=== PATIENT | female | born 1995 | race Caucasian/White ===

== ENCOUNTER → 2019-04-06 07:04 | Outpatient (CLI) | payer OTHER, MEDICAID, SELFPAY ==
[2019-04-06 08:31] LABS: Hematocrit 35.8 % (36-46); Hemoglobin 12.3 g/dL (12.0-16.0); Mean Corpuscular HGB Conc 34.3 % (30-36); Mean Corpuscular Hemoglobin 30.1 PG (26-34); Mean Corpuscular Volume 87.8 fL (80-100); Platelet Count 221 X10^3/uL (150-400); Red Blood Cell Count 4.08 X10^6/uL (4.0-5.2); White Blood Cell Count 9.8 X10^3/uL (4.5-11.0)
[2019-04-06 08:41] LABS: Glucose Fasting 78 mg/dL (70-100)
[2019-04-06 08:51] LABS: Alanine Aminotransferase 25 IU/L (9-52); Albumin 3.6 g/dL (3.5-5.0); Albumin Globulin Ratio 1.1 (1.0-2.8); Alkaline Phosphatase 136 U/L (38-126); Aspartate Aminotransferase 22 IU/L (14-36); Bilirubin Total 0.4 mg/dL (0.2-1.3); Bilirubin Unconjugated 0.2 mg/dL (0.0-1.1); Globulin 3.4 g/dL (1.7-4.1); HEMOLYSIS < 15 (0-50)
[2019-04-06 09:27] LABS: Glucose Tol Interpretation INTERPRETATION
[2019-04-06 09:55] LABS: Glucose 1 Hour 175 mg/dL (70-170)
[2019-04-06 11:08] LABS: Glucose 2 Hour 138 mg/dL (70-140)
== END ==
PROVIDERS: Visit Provider Nurse Practitioner Obstetrics & Gynecology
DX: Z34.93 Encounter for supervision of normal pregnancy, unspecified, third trimester (principal); Z3A.27 27 weeks gestation of pregnancy
CPT/HCPCS: 36415; 80076; 82951; 82952; 85027; 86850

== ENCOUNTER 2019-05-30 10:51 | Outpatient (CLI) | payer OTHER, MEDICAID, SELFPAY ==
--- NOTE | 2019-05-30 11:01 | DI.US.S_ITS ---
PROCEDURE: US OB BIOPHYSICAL PROFILE INDICATIONS: @ 34.6wks W/ INTRAHEPATIC CHOLESTASIS OF OUTSIDE/PRIOR DATING DATA: Last menstrual period (LMP): 09/28/18. LMP-based estimated date of delivery (GEORGE): 07/05/19. TECHNIQUE: Real-time scanning was performed of the fetus, with image documentation and biometric measurements. Biophysical profile was also obtained. COMPARISON: None. FINDINGS: General: A single living intrauterine gestation is present. Presentation: Cephalic Placenta: Placental position is anterior Amniotic fluid index: 11.6 cm, normal range is 5-24 cm. heart rate: 136 beats per minute. Maternal cervical canal: Not obtained or adequately seen Biophysical profile: Tone: 2/2 points. Movement: 2/2 points. Respiration: 2/2 points. Largest pocket of fluid: 2/2 points. (3.5 cm) IMPRESSION: 1. Single intrauterine . 2. Normal biophysical profile (05/14). Dictated by: Coleman Nye M.D. on 05/30/2019 at 12:46 Approved by: oCleman Nye M.D. on 05/30/2019 at 12:48
--- NOTE | 2019-05-30 11:07 | P.TNLD_ITS ---
Visit Information Visit Information Date of evaluation: 05/30/19 Primary OB Provider: Tameka Carter On-call OB Provider: Jacobo Wright Reason for Evaluation: Yes non-stress test Comments/Additional reasons for admission: 23YO @ 34.6 wks w/ new diagnosis of ICP, here for NST, BPP and coordination of care. Vital Signs Vital Signs: BP 108/55, HR-67, RR-16, T-97.8 [facility] Medical History (Updated 05/30/19 @ 12:28 by Tameka Carter CNM) Obesity (BMI 30.0-34.9) (Acute) Anxiety and depression (Acute) Type O blood, Rh negative (Acute) Liver and biliary tract disorders in , third trimester (Acute) History of suicide attempt (Acute) with 34 completed weeks gestation (Acute) Supervision of high risk due to social problems (Acute) Supervision of with other poor reproductive or obstetric history, unspecified trimester (Acute) Surgical History (Updated 05/30/19 @ 11:23 by Tameka Carter CNM) History of appendectomy (Acute) Social History (Updated 05/30/19 @ 11:25 by Tameka Carter CNM) marital status: unmarried,living together details: AWAIS moved from [place] to with her number of children: 1 household members: family and children lives independently: Yes housing: house occupational status: employed Smoking Status: Former smoker substance use type: other Type(s) of exercise: walking Social History (Updated 05/30/19 @ 11:25 by Tameka Carter CNM) marital status: unmarried,living together details: AWAIS moved from [place] to with her number of children: 1 household members: family and children lives independently: Yes housing: house occupational status: employed Smoking Status: Former smoker substance use type: other Type(s) of exercise: walking Review of Systems Review of Systems Intense full boy pruritis started 05/25/19. No RUQ pain. All systems reviewed & are unremarkable except as noted in HPI and below Exam Vital Signs (past 8 hours): BP 108/55, HR-67, RR-16, T-97.8 Const General: cooperative Nutritional Appearance: obese Orientation: alert and oriented x3 Limitations: altered mental status Resp Effort & Inspection: normal respiratory effort and able to speak in complete sentences Auscultation: clear to auscultation bilaterally Cardio Rate: regular rate Rhythm: regular rhythm Heart Sounds: S1 normal and S2 normal GI Palpation: soft and no hepatosplenomegaly Other: No RUQ tederness OB/External & Speculum: external exam normal Presentation: vertex Other: GBS collected Psych Appearance: grossly normal Mental Status: mental status grossly normal Speech and Movement: speech and movement normal Mood: congruent mood Affect: normal affect Attitude: cooperative Thought Process: normal Judgment: judgment good Objective Labs Labs: Total bile acids drawn 05/25/19 and resulted 05/29/19 @ 1700 are 17.2umol/L 05/25/19 LFTs: AST-36, ALT-53, Alkaline phosphatase-226 GBS collected in triage-pending Evaluation Evaluation Baseline heart rate: 140 Variability: Moderate (11-25) monitor accelerations: Present monitor decelerations: Absent Contraction Frequency (minutes): 0 Comments: CE deferred BPP-05/14 US gallbladder complete, report pending Diagnosis, Plan/Disposition Plan/Disposition Plan: Counseled patient on ICP diagnosis, implications and recommendations. Continue Ursodiol TID and hydroxyzine PRN pruritis. Discharge to home w/ biweekly NSTs schedule, Weekly BPPs scheduled, IOL @ 37wks scheduled. Will repeat labs weekly on Tuesdays. Consulted Dr.R Wright who agreed w/ POC. Pt given routine precautions w/ kick count instructions. Discharge to home. Will call if gallbladder US abnormal. OB Disposition: home
--- NOTE | 2019-05-30 11:56 | DI.US.S_ITS ---
PROCEDURE: US ABDOMEN LIMITED INDICATIONS: INTRAHEPATIC CHOLESTASIS, PLEASE EXAMINE GB TECHNIQUE: Real-time focused scanning was performed of the abdomen, with image documentation. COMPARISON: None. FINDINGS: Echogenicity of the liver is symmetric when compared to the right kidney. Imaged portions are unremarkable. However, the entire liver is not imaged on this exam. There is no intrahepatic or extrahepatic biliary dilatation. The common bile duct measures approximately 5 mm in diameter. The gallbladder is normal in size without gallbladder wall thickening or pericholecystic fluid. There is a small echogenic focus identified within the inferior margin of the gallbladder, which does not move with decubitus positioning and may be adherent to the wall of the gallbladder. This echogenic structure demonstrates posterior acoustical shadowing and is not necessarily located within the neck of the gallbladder. The pancreas is unremarkable. Right kidney is within normal limits. IMPRESSION: 1. Probable cholelithiasis. No acute cholecystitis is suspected. 2. No intrahepatic or extrahepatic biliary dilatation. Dictated by: Coleman Nye M.D. on 05/30/2019 at 12:48 Approved by: Coleman Nye M.D. on 05/30/2019 at 12:50
== END 2019-05-30 12:53 | disposition home or self-care (01) ==
LOC: LABOR 11:20 → OB 06-02 11:04
PROVIDERS: Visit Provider Nurse Practitioner Obstetrics & Gynecology
DX: O26.23 Pregnancy care for patient with recurrent pregnancy loss, third trimester (principal); Z3A.34 34 weeks gestation of pregnancy
CPT/HCPCS: 59025; 76705; 76819; G0378; G0379

== ENCOUNTER 2019-06-02 16:19 | Observation (INO) | payer OTHER, MEDICAID, SELFPAY ==
--- NOTE | 2019-06-02 16:52 | PM.OBTRLD ---
Visit Information Visit Information Date of evaluation: 06/02/19 Primary OB Provider: Tameka Carter On-call OB Provider: Jacobo Wright Reason for Evaluation: Yes non-stress test Comments/Additional reasons for admission: 23 YO @ [id number] w/ ICP diagnosed 05/28/19, here for biweekly NST. Has had a lot of life stress, denies SI. Otherwise well with no changes. +FM and irregular, mild ctx. No VB, LOF or RUQ pain. Full body pruritis is slightly relieved at night w/ hydroxyzine. [facility] Medical History Obesity (BMI 30.0-34.9) (Acute) Anxiety and depression (Acute) Type O blood, Rh negative (Acute) Liver and biliary tract disorders in , third trimester (Acute) History of suicide attempt (Acute) with 34 completed weeks gestation (Acute) Supervision of high risk due to social problems (Acute) Supervision of with other poor reproductive or obstetric history, unspecified trimester (Acute) Surgical History History of appendectomy (Acute) Social History (Updated 05/30/19 @ 11:25 by Tameka Carter CNM) marital status: unmarried,living together details: AWAIS moved from [place] to with her number of children: 1 household members: family and children lives independently: Yes housing: house occupational status: employed Smoking Status: Former smoker substance use type: other Type(s) of exercise: walking Social History marital status: unmarried,living together details: AWAIS moved from [place] to with her number of children: 1 household members: family and children lives independently: Yes housing: house occupational status: employed Smoking Status: Former smoker substance use type: other Type(s) of exercise: walking Review of Systems Review of Systems Full body pruritis, worse at night. No RUQ pain. Constitutional Constitutional: Reports as per HPI and Reports system reviewed and no additional complaints, except as documented Exam Vital Signs (past 8 hours): BP 105/59, HR-73, RR-16, T36.4C Objective Labs Labs: LFTs and bile acids pending Evaluation Evaluation Baseline heart rate: 135 Variability: Moderate (11-25) monitor accelerations: Present monitor decelerations: Early Contraction Frequency (minutes): 3 Uterine Contraction Intensity: Mild Comments: Reactive NST CE deferred Diagnosis, Plan/Disposition Plan/Disposition Plan: Reviewed schedule of biweekly NSTs and weekly BPP. Next appt is BPP 06/05/19 @ 1310 with NST to follow. Pt has these times written. Emotional support offered. Encouraged pt to call with any concerns. Reviewed warning sx and when to call. OB Disposition: home
--- NOTE | 2019-06-02 17:01 | P.TNLD_ITS ---
Visit Information Visit Information Date of evaluation: 06/02/19 Primary OB Provider: Tameka Carter On-call OB Provider: Jacobo Wright Reason for Evaluation: Yes non-stress test Comments/Additional reasons for admission: 23 YO @ [id number] w/ ICP diagnosed 05/28/19, here for biweekly NST. Has had a lot of life stress, denies SI. Otherwise well with no changes. +FM and irregular, mild ctx. No VB, LOF or RUQ pain. Full body pruritis is slightly relieved at night w/ hydroxyzine. [facility] Medical History Obesity (BMI 30.0-34.9) (Acute) Anxiety and depression (Acute) Type O blood, Rh negative (Acute) Liver and biliary tract disorders in , third trimester (Acute) History of suicide attempt (Acute) with 34 completed weeks gestation (Acute) Supervision of high risk due to social problems (Acute) Supervision of with other poor reproductive or obstetric history, unspecified trimester (Acute) Surgical History History of appendectomy (Acute) Social History (Updated 05/30/19 @ 11:25 by Tameka Carter CNM) marital status: unmarried,living together details: AWAIS moved from [place] to with her number of children: 1 household members: family and children lives independently: Yes housing: house occupational status: employed Smoking Status: Former smoker substance use type: other Type(s) of exercise: walking Social History marital status: unmarried,living together details: AWAIS moved from [place] to with her number of children: 1 household members: family and children lives independently: Yes housing: house occupational status: employed Smoking Status: Former smoker substance use type: other Type(s) of exercise: walking Review of Systems Review of Systems Full body pruritis, worse at night. No RUQ pain. Constitutional Constitutional: Reports as per HPI and Reports system reviewed and no additional complaints, except as documented Exam Vital Signs (past 8 hours): BP 105/59, HR-73, RR-16, T36.4C Objective Labs Labs: LFTs and bile acids pending Evaluation Evaluation Baseline heart rate: 135 Variability: Moderate (11-25) monitor accelerations: Present monitor decelerations: Early Contraction Frequency (minutes): 3 Uterine Contraction Intensity: Mild Comments: Reactive NST CE deferred Diagnosis, Plan/Disposition Plan/Disposition Plan: Reviewed schedule of biweekly NSTs and weekly BPP. Next appt is BPP 06/05/19 @ 1310 with NST to follow. Pt has these times written. Emotional support offered. Encouraged pt to call with any concerns. Reviewed warning sx and when to call. OB Disposition: home
[2019-06-02 17:02] LABS: Alanine Aminotransferase 243 IU/L (9-52); Albumin 3.6 g/dL (3.5-5.0); Albumin Globulin Ratio 0.9 (1.0-2.8); Alkaline Phosphatase 257 U/L (38-126); Aspartate Aminotransferase 138 IU/L (14-36); Bilirubin Total 0.6 mg/dL (0.2-1.3); Bilirubin Unconjugated 0.4 mg/dL (0.0-1.1); Globulin 3.8 g/dL (1.7-4.1); HEMOLYSIS < 15 (0-50); Total Protein 7.4 g/dL (6.3-8.2)
[2022-11-23 15:58] LABS: Bile Acids, Total 16
== END 2019-06-02 17:21 | disposition home or self-care (01) ==
PROVIDERS: Admitting Provider Nurse Practitioner Obstetrics & Gynecology; Visit Provider Nurse Practitioner Obstetrics & Gynecology
DX: O26.893 Other specified pregnancy related conditions, third trimester (principal); Z3A.35 35 weeks gestation of pregnancy
CPT/HCPCS: 36415; 59025; 80076; 82239; 87081; G0378; G0379

== ENCOUNTER → 2019-06-05 13:03 | Outpatient (CLI) | payer OTHER, MEDICAID, SELFPAY ==
--- NOTE | 2019-06-05 | DI.US.S_ITS ---
PROCEDURE: US OB BIOPHYSICAL PROFILE INDICATIONS: BIOPHYSICAL PROFILE OUTSIDE/PRIOR DATING DATA: Last menstrual period (LMP): Unknown. LMP-based estimated date of delivery (GEORGE): N./A.. First dating scan (date and location): 03/03/19. Estimated date of delivery (GEORGE) from first dating scan: 07/09/19. TECHNIQUE: Real-time scanning was performed of the fetus, with image documentation and biometric measurements. Biophysical profile was also obtained. COMPARISON: [facility], US, US ABDOMEN LIMITED, 05/30/2019, 12:33. [facility], US, US OB BIOPHYSICAL PROFILE, 05/30/2019, 12:03. [facility] Ultrasound, US, US OB > 14 WEEKS COMPLETE ANATOMY, 03/03/2019, 9:16. FINDINGS: General: A single living intrauterine gestation is present. Presentation: Vertex. Placenta: Placental position is anterior,. Amniotic fluid index: 13.7 cm, normal range is 5-24 cm. heart rate: 153 beats per minute. Maternal cervical canal: Not well-seen. Biophysical profile: Tone: 2 points. Movement: 2 points. Respiration: 2 points. Largest pocket of fluid: 2 points. Umbilical artery Doppler: Not obtained. IMPRESSION: Normal biophysical profile. Dictated by: Tomas Wei RR Interpreted: Jaymie Arreola MD on 06/05/2019 at 16:35 Approved by: Jaymie Arreola M.D. on 06/05/2019 at 17:48
== END ==
PROVIDERS: PCP Nurse Practitioner Obstetrics & Gynecology; Visit Provider Nurse Practitioner Obstetrics & Gynecology
DX: O09.893 Supervision of other high risk pregnancies, third trimester (principal); O26.619 Liver and biliary tract disorders in pregnancy, unspecified trimester
CPT/HCPCS: 76815; 76819

== ENCOUNTER 2019-06-05 13:53 | Outpatient (CLI) | payer OTHER, MEDICAID, SELFPAY ==
--- NOTE | 2019-06-05 14:16 | P.TNLD_ITS ---
[facility] Medical History Anxiety and depression (Acute) History of suicide attempt (Acute) Liver and biliary tract disorders in , third trimester (Acute) Obesity (BMI 30.0-34.9) (Acute) with 34 completed weeks gestation (Acute) Supervision of high risk due to social problems (Acute) Supervision of with other poor reproductive or obstetric history, unspecified trimester (Acute) Type O blood, Rh negative (Acute) Surgical History History of appendectomy (Acute) Social History marital status: unmarried,living together details: AWAIS moved from [place] to be with her number of children: 1 household members: family and children lives independently: Yes housing: house occupational status: employed Smoking Status: Former smoker substance use type: other Type(s) of exercise: walking Social History (Updated 06/05/19 @ 14:17 by Tameka Carter CNM) marital status: unmarried,single details: AWAIS in [place], will be at number of children: 1 household members: family and children lives independently: Yes housing: house occupational status: employed Smoking Status: Former smoker substance use type: other Type(s) of exercise: walking Review of Systems Review of Systems Narrative: 23 YO @ [id number] came from [facility]/14, here for NST for ICP. Pruritis persists after starting Ursodiol 300mg TID on 05/28/19. Mild nausea is also bothering her. Feeling good FM. No cramping or VB. Exam Eyes Sclera: sclerae normal Psych Speech and Movement: speech and movement normal Mood: congruent mood Affect: normal affect Evaluation Evaluation Baseline heart rate: 140 Variability: Moderate (11-25) monitor accelerations: Present monitor decelerations: Absent Contraction Frequency (minutes): 0 Uterine Contraction Intensity: Mild Comments: Reactive NST Diagnosis, Plan/Disposition Plan/Disposition Plan: Discharge to home w/ PTL warning sx and kick count instructions. Continue Ursodiol 300mg TID. Repeat NST schedule 06/09/19 @ 1pm. OB Disposition: home
== END 2019-06-05 14:50 | disposition home or self-care (01) ==
LOC: LABOR 14:25 → OB 06-09 13:41
PROVIDERS: PCP Nurse Practitioner Obstetrics & Gynecology; Visit Provider Nurse Practitioner Obstetrics & Gynecology
DX: O26.613 Liver and biliary tract disorders in pregnancy, third trimester (principal); Z3A.35 35 weeks gestation of pregnancy
CPT/HCPCS: 59025; 76815; 76819; G0378; G0379

== ENCOUNTER 2019-06-09 12:48 | Outpatient (CLI) | payer OTHER, MEDICAID, SELFPAY ==
--- NOTE | 2019-06-09 13:27 | P.TNLD_ITS ---
[facility] Medical History Anxiety and depression (Acute) History of suicide attempt (Acute) Liver and biliary tract disorders in , third trimester (Acute) Obesity (BMI 30.0-34.9) (Acute) with 34 completed weeks gestation (Acute) Supervision of high risk due to social problems (Acute) Supervision of with other poor reproductive or obstetric history, unspecified trimester (Acute) Type O blood, Rh negative (Acute) Surgical History History of appendectomy (Acute) Social History (Updated 06/05/19 @ 14:17 by Tameka Carter CNM) marital status: unmarried,single details: FOB in [place], will be at number of children: 1 household members: family and children lives independently: Yes housing: house occupational status: employed Smoking Status: Former smoker substance use type: other Type(s) of exercise: walking Social History marital status: unmarried,single details: FOB in [place], will be at number of children: 1 household members: family and children lives independently: Yes housing: house occupational status: employed Smoking Status: Former smoker substance use type: other Type(s) of exercise: walking Review of Systems Review of Systems Narrative: Pruritis has worsened, but is slightly improved when taking hydroxyzine. Nausea and heart burn have worsened this week, but she has not increased Zantac as recommended. Had bilateral upper abdominal pain last night that has since improved. +FM and rare mild ctx. No VB or LOF. ROS Unobtainable: All systems reviewed & are unremarkable except as noted in HPI and below Exam Vital Signs (past 8 hours): BP-99/71, HR-72, T-36.7 Objective Labs Labs: Bile acids, total from last week resulted 16 today Weekly LFTs and bile acids pending Evaluation Evaluation Baseline heart rate: 140 Variability: Moderate (11-25) monitor accelerations: Present monitor decelerations: Absent Contraction Frequency (minutes): 0 Uterine Contraction Intensity: Mild Diagnosis, Plan/Disposition Plan/Disposition Plan: Discharge to home. Routine precautions reviewed. Return 06/12/19 for BPP and NST. IOL confirmed for evening 06/14/19. OB Disposition: home
[2019-06-09 14:02] LABS: Alanine Aminotransferase 230 IU/L (9-52); Albumin 3.8 g/dL (3.5-5.0); Albumin Globulin Ratio 1.1 (1.0-2.8); Alkaline Phosphatase 247 U/L (38-126); Aspartate Aminotransferase 96 IU/L (14-36); Bilirubin Total 0.5 mg/dL (0.2-1.3); Bilirubin Unconjugated 0.2 mg/dL (0.0-1.1); Globulin 3.6 g/dL (1.7-4.1); HEMOLYSIS < 15 (0-50); Total Protein 7.4 g/dL (6.3-8.2)
[2019-06-12 14:31] LABS: Bile Acids, Total 40 umol/L (< 20)
== END 2019-06-09 13:31 | disposition home or self-care (01) ==
LOC: OB 06-10 15:02
PROVIDERS: PCP Nurse Practitioner Obstetrics & Gynecology; Visit Provider Nurse Practitioner Obstetrics & Gynecology
DX: O26.613 Liver and biliary tract disorders in pregnancy, third trimester (principal); Z3A.36 36 weeks gestation of pregnancy
CPT/HCPCS: 36415; 59025; 80076; 82239; G0378; G0379

== ENCOUNTER → 2019-06-12 12:53 | Outpatient (CLI) | payer OTHER, MEDICAID, SELFPAY ==
--- NOTE | 2019-06-12 | DI.US.S_ITS ---
PROCEDURE: US OB BIOPHYSICAL PROFILE INDICATIONS: MATERNAL CHOLESTASIS OUTSIDE/PRIOR DATING DATA: Last menstrual period (LMP): Unknown. LMP-based estimated date of delivery (GEORGE): N./A.. First dating scan (date and location): 03/03/19. Estimated date of delivery (GEORGE) from first dating scan: 07/09/19. TECHNIQUE: Real-time scanning was performed of the fetus, with image documentation and biometric measurements. Biophysical profile was also obtained. Endovaginal scanning: Vertex COMPARISON: [facility], OB BIOPHYSICAL PROFILE, 06/05/2019, 13:37. FINDINGS: General: A single living intrauterine gestation is present. Presentation: Vertex. Placenta: Placental position is anterior, without previa. Amniotic fluid index: 14.9 cm, normal range is 5-24 cm. heart rate: 143 beats per minute. Maternal cervical canal: Not well-seen. Biophysical profile: Tone: 2 points. Movement: 2 points. Respiration: 2 points. Largest pocket of fluid: 2 points. Umbilical artery Doppler: Not performed. IMPRESSION: Normal biophysical profile score of 8 out of 8 possible points. Dictated by: Tomas Wei [facility] Interpreted: Félix Jovel MD on 06/12/2019 at 15:25 Approved by: Félix Jovel M.D. on 06/12/2019 at 17:22
== END ==
PROVIDERS: PCP Nurse Practitioner Obstetrics & Gynecology; Visit Provider Nurse Practitioner Obstetrics & Gynecology
DX: O26.613 Liver and biliary tract disorders in pregnancy, third trimester (principal)
CPT/HCPCS: 76819

== ENCOUNTER 2019-06-12 12:57 | Outpatient (CLI) | payer OTHER, MEDICAID, SELFPAY ==
--- NOTE | 2019-06-12 15:02 | P.TNLD_ITS ---
[facility] Medical History Anxiety and depression (Acute) History of suicide attempt (Acute) Liver and biliary tract disorders in , third trimester (Acute) Obesity (BMI 30.0-34.9) (Acute) with 34 completed weeks gestation (Acute) Supervision of high risk due to social problems (Acute) Supervision of with other poor reproductive or obstetric history, unspecified trimester (Acute) Type O blood, Rh negative (Acute) Surgical History History of appendectomy (Acute) Social History marital status: unmarried,single details: FOB in [place], will be at number of children: 1 household members: family and children lives independently: Yes housing: house occupational status: employed Smoking Status: Former smoker substance use type: other Type(s) of exercise: walking Social History marital status: unmarried,single details: FOB in [place], will be at number of children: 1 household members: family and children lives independently: Yes housing: house occupational status: employed Smoking Status: Former smoker substance use type: other Type(s) of exercise: walking Review of Systems Review of Systems Narrative: No change in symptoms. Pruritis relieved by hydroxyzine. Just came from [facility] where she was told everything was normal. ROS Unobtainable: All systems reviewed & are unremarkable except as noted in HPI and below Exam Vital Signs (past 8 hours): VSS, see Obix Evaluation Evaluation Baseline heart rate: 135 Variability: Moderate (11-25) monitor accelerations: Present monitor decelerations: Absent Contraction Frequency (minutes): 1 Uterine Contraction Intensity: Mild Cervical dilation (cm): 4 Cervical effacement (%): 75 station: -2 Diagnosis, Plan/Disposition Plan/Disposition Plan: Discharge to home. Counseled on favorable cervix and no ripening needed. Will admit on 06/14/19 for overnight obs and IOL schedule 06/15/19 in am. Informed consent for IOL obtained. Reviewed warning sx and when to call. OB Disposition: home
== END 2019-06-12 14:21 | disposition home or self-care (01) ==
LOC: LABOR 15:14 → OB 06-18 07:45
PROVIDERS: PCP Nurse Practitioner Obstetrics & Gynecology; Visit Provider Nurse Practitioner Obstetrics & Gynecology
DX: O26.613 Liver and biliary tract disorders in pregnancy, third trimester (principal); K83.1 Obstruction of bile duct; Z3A.36 36 weeks gestation of pregnancy; O26.23 Pregnancy care for patient with recurrent pregnancy loss, third trimester
CPT/HCPCS: 59025; 76819; G0378; G0379

== ENCOUNTER 2019-06-14 18:03 | Inpatient (IN) | payer OTHER, MEDICAID, SELFPAY ==
--- NOTE | 2019-06-15 06:06 | P.HPOB_ITS ---
OB HPI History of Present Condition Chief complaint: monitor baby Narrative: Selina Lamb is a 23 year old @ [id number] by LMP and 5wk US here for medical IOL for intrahepatic cholestasis of . ICP was diagnosed at 34wks and treated w/ Ursodiol. +FM and mild, irregular ctx w/ favorable cervix. no VB or LOF. Routine PN care w/ CNM, transferred in from [place] @ 23wks. complicated by chronic nausea, ICP, depression and complex social situation. Evaluation Evaluation Baseline heart rate: 130 Variability: Moderate (11-25) monitor accelerations: Present monitor decelerations: Early Contraction Frequency (minutes): 15 Uterine Contraction Intensity: Mild Category of Tracing: I Cervical dilation (cm): 4 Cervical effacement (%): 80 station: -3 Laboratory results: 06/09/19: AST-96, ALT-230, Alk [id number], bi;e acids, total-40 PFSH Medical History Anxiety and depression (Acute) History of suicide attempt (Acute) Liver and biliary tract disorders in , third trimester (Acute) Obesity (BMI 30.0-34.9) (Acute) with 34 completed weeks gestation (Acute) Supervision of high risk due to social problems (Acute) Supervision of with other poor reproductive or obstetric history, unspecified trimester (Acute) Type O blood, Rh negative (Acute) Surgical History History of appendectomy (Acute) Social History marital status: unmarried,single details: FOB in [place], will be at number of children: 1 household members: family and children lives independently: Yes housing: house occupational status: employed Smoking Status: Former smoker substance use type: other Type(s) of exercise: walking Social History marital status: unmarried,single details: FOB in [place], will be at number of children: 1 household members: family and children lives independently: Yes housing: house occupational status: employed Smoking Status: Former smoker substance use type: other Type(s) of exercise: walking Meds Home Medications and Allergies Home Medications Medication Instructions Recorded Confirmed Type hydroxyzine HCl Q8HR PRN 06/15/19 History ranitidine HCl 06/15/19 History ursodiol TID 06/15/19 History Allergies Allergy/AdvReac Type Severity Reaction Status Date / Time amoxicillin Allergy Mild rash Verified 06/15/19 06:32 shellfish derived Allergy Unknown Verified 06/15/19 06:32 latex AdvReac Intermediate Verified 06/15/19 06:32 Review of Systems Review of Systems ROS Unobtainable: All systems reviewed & are unremarkable except as noted in HPI and below Integumentary/Breasts Skin/Breast: Reports pruritus Exam Vital Signs (past 8 hours): BP-98/64, HR-72, T-36.8 Const General: cooperative and comfortable Nutritional Appearance: obese Orientation: alert and awake Chest Chest: normal inspection of the chest Resp Effort & Inspection: normal respiratory effort Auscultation: clear to auscultation bilaterally Cardio Rate: regular rate Rhythm: regular rhythm Heart Sounds: S1 normal and S2 normal Skin General: no rashes or lesions noted Rashes: no rashes Hair: normal Other: No jaundice Psych Appearance: disheveled Mental Status: mental status grossly normal Speech and Movement: speech and movement normal Mood: congruent mood Affect: normal affect Attitude: cooperative Thought Process: normal Thought Content: normal Objective Labs Labs: ABO/Rh- O negative, TSH 0.66, Hep B-negative, HIV-negative, RPR-NR, Rubella-Immune, GC/CT-negative/negative, NIPS-negative/female; 04/06/19: Hgb-12.3, Hct-35.8, Plt-221, 2hr gtt-78/175/138/WNL; 05/30/19:GBS-negative Assessment and Plan Assessment and Plan Assessment and Plan narrative: Term multipara IOL for ICP Depression Complex social situation No indication for GBS prophylaxis Cat I FHR P: Counseled on options for IOL. Pt strongly desires NOT to use pitocin. Recommend breast pump x1-2 cycles and then AROM, pt agreeable. IOL consent signed 06/12/19. Labor support PRN. notified of pt admit status and POC, as a courtesy. Time Spent with Patient Total time spent with greater than 50% in coordination of care (as documented) at patient's floor/unit and/or counseling patient:: 25 - 35 minutes
[2019-06-15 06:48] LABS: Add Manual Diff / Slide Review NO; Basophils Absolute Auto 0 /uL (0-100); Basophils Percent Auto 0.5 % (0-2); Eosinophils Absolute Auto 100 /uL (0-450); Eosinophils Percent Auto 0.9 % (2-4); Hematocrit 37.4 % (36-46); Hemoglobin 12.6 g/dL (12.0-16.0); Lymphocytes Absolute Auto 2200 /uL (1100-4500); Lymphocytes Percent Auto 24.3 % (25-40); Mean Corpuscular HGB Conc 33.7 % (30-36); Mean Corpuscular Hemoglobin 28.8 PG (26-34); Mean Corpuscular Volume 85.7 fL (80-100); Monocytes Absolute Auto 700 /uL (0-900); Monocytes Percent Auto 7.9 % (3-14); Neutrophils Absolute Auto 5900 /uL (1500-7000); Neutrophils Percent Auto 66.4 % (50-75); Platelet Count 200 X10^3/uL (150-400); Red Blood Cell Count 4.37 X10^6/uL (4.0-5.2); Red Cell Distribution Width 14.1 % (11.6-14.8); White Blood Cell Count 8.9 X10^3/uL (4.5-11.0)
[2019-06-15] MEDS: URSODIOL 300 MG CAPSULE PO (10:16)
--- NOTE | 2019-06-15 11:01 | PM.OBPNLAB ---
Date/Time Date Patient Seen: 06/15/19 Time Patient Seen: 11:00 Pain Control Pain control: tolerating well Comments: Sitting on ball, feeling mild ctx. coping well. Pelvic Exam Dilation (cm): 4 Effacement (%): 80 station: -3 Comments: CE deferred as AROM was performed at 0815, for copious clear fluid and CE was4.5/75%/-3 at that time. Contractions Contractions on admission: irregular Pitocin rate (mU/min): 0 Contraction frequency (min): 2 Contraction duration (min): 50 Contraction pattern: Irregular Contraction intensity: Mild Status status: Category ll Heart Rate Baseline: 145 Monitor Accelerations: Present Monitor Decelerations: Variable Monitor Variability: Moderate Comments: Single variable, <60 seconds, douglas to 90 w/ rapid return to baseline Assessment and Plan Assessment: induction ongoing Plan: continuous present management Comments: Anticapte active labor soon as ctx have slowly progressed in frequency and intensity since AROM. If not breathing through ctx, will recommend pitocin at 6 hours from AROM. Will continue to monitor closely. Will repeat CE after 2 hours of stronger contractions.
--- NOTE | 2019-06-15 13:45 | PM.OBPNLAB ---
Date/Time Date Patient Seen: 06/15/19 Time Patient Seen: 13:45 Pain Control Pain control: tolerating well Comments: pt sitting up in bed. Has been walking in room and sitting on exercise ball. Was feeling occasional stronger ctx until about an hour ago. Now feeling regular, mild ctx. Open to starting pitocin @ 6 hours from AROM. Pelvic Exam Dilation (cm): 4 Effacement (%): 80 station: -3 Comments: CE deferred as pt is not uncomfortable w/ contractions. Contractions Contractions on admission: irregular Monitor mode: External Pitocin rate (mU/min): 0 Contraction frequency (min): 2 Contraction duration (min): 50 Contraction pattern: Irregular Contraction intensity: Mild Status status: Category l Heart Rate Baseline: 135 Monitor Accelerations: Present Monitor Decelerations: Absent Monitor Variability: Moderate Assessment and Plan Assessment: induction ongoing Plan: begin patient augmentation Comments: Pitocin ordered to start @ 1415. Labor support PRN. Reassess in 4 hours or sooner, PRN.
[2019-06-15 14:12] LABS: Alanine Aminotransferase 175 IU/L (9-52); Albumin 3.5 g/dL (3.5-5.0); Alkaline Phosphatase 219 U/L (38-126); Bilirubin Total 0.7 mg/dL (0.2-1.3); Bilirubin Unconjugated 0.2 mg/dL (0.0-1.1); Globulin 3.5 g/dL (1.7-4.1)
[2019-06-15 14:13] LABS: Aspartate Aminotransferase 108 IU/L (14-36); HEMOLYSIS 85 (0-50)
[2019-06-15] MEDS: OXYTOCIN PREMIX 30 UNIT/500 ML PLAST..BAG IV (14:48)
[2019-06-15] MEDS: LACTATED RINGERS 1,000 ML 100 ML IV ×2 (14:48→18:39)
--- NOTE | 2019-06-15 17:46 | PM.OBPNLAB ---
Date/Time Date Patient Seen: 06/15/19 Time Patient Seen: 17:00 Pain Control Pain control: tolerating well Comments: Using nitrous oxide with some relief. Considering epidural. Pelvic Exam Dilation (cm): 5 Effacement (%): 90 station: -1 Amniotic membrane status: Leaking Contractions Monitor mode: External Pitocin rate (mU/min): 4 Contraction frequency (min): 2 Contraction duration (min): 6 Contraction pattern: Irregular Contraction intensity: Moderate Status status: Category l Heart Rate Baseline: 130 Monitor Accelerations: Present Monitor Decelerations: Absent Monitor Variability: Moderate Assessment and Plan Assessment: active labor and induction ongoing Plan: continuous present management Comments: Continue pitocin titration to adequate ctx pattern. Labor support PRN. Epidural if requested. Reassess in 4 hours or sooner, PRN.
[2019-06-15] MEDS: fentaNYL 100 MCG/2 ML INJ IV (19:04)
[2019-06-15 19:45] VITALS: BP 113/69
--- NOTE | 2019-06-15 21:09 | P.PCNOB_ITS ---
Events: Labor Induction and Labor Augmentation Labor & Delivery Delivery date: 06/15/19 Intrapartal events: Abnormal Labs Cervical ripening method: none Induction method: AROM Delivery augmentation: pitocin Delivery monitor: external FHT and external uterine Route of delivery: L&D Laceration Description: None Estimated blood loss (mL): 5 Anesthesia type: Epidural Narrative: Patient achieved pain relief after 2nd epidural placement, was assisted to supine position and was found to be C/C/+1 at 2009. Straight catheterization for 150mL urine. Pt pushed well with coaching and encouragement w/ Cat II FHTs throughout short second stage. NSVB of a vigorous baby girl in KRISTIN w/ no NC and easy delivery of the shoulders at 2039. Udall was placed on maternal abdomen by CNM and FOB. Remaining pitocin was opened to 300mL/hr for active management of the third stage of labor. After cessation of pulsation, the cord was double clamped by CNM and cut by FOB. Hospital cord blood sample was collected. Gentle cord traction and single maternal push led to spontaneous, Kaur delivery of an apparently intact placenta, membranes and 3VC at 2050. Fundus was immediately firm and bleeding minimal. Vagina and perineum inspected and intact. QBL 50mL. Baby 1: Infant gender: Female Presentation: vertex Placenta delivery description: Spontaneous and Normal Configuration score (1 min): 9 score (5 min): 9 Narrative: Drying and skin to skin Plan for aftercare: Routine PP orders w/ social work consultation ordered.
[2019-06-16 00:08] VITALS: BP 98/57; PULSE 68; RESP 16; TEMP 36.6
[2019-06-16] MEDS: KETOROLAC 30 MG/ML VIAL IV ×3 (02:17→20:21)
[2019-06-16] MEDS: ACETAMINOPHEN 325 MG TABLET 650 MG PO ×3 (02:20→20:21)
[2019-06-16] MEDS: BUSPIRONE 5 MG TABLET 10 MG PO ×2 (08:46→23:59)
[2019-06-16] MEDS: DOCUSATE 250 MG CAPSULE PO (08:46)
--- NOTE | 2019-06-16 15:29 | PM.OBPN.1 ---
Subjective - OB Subjective Patient comments: no complaints [place] baby status: doing well feeding status: exclusively breast feeding Date Patient Seen: 06/16/19 Time Patient Seen: 01:53 Interval history: Pt sitting up in bed, holding her daughter. Voiding and ambulating independently. Tolerating general diet. her daughter independently. Cramping pain only w/ nursing, tolerable w/ Tylenol. FOB present and supportive. Desires discharge to home in am. Exam Vital Signs (past 8 hours): HR-64, RR-16, BP-96/60, T-98.3F Other: FF@u, lochia decreasing, no clots Objective Labs Result Diagrams: 06/15/19 06:20 Assessment & Plan Plan day: 1 plan OB: routine care Comments: Awaiting SW consultation. Continue routine PP orders. Anticipate d/c to home in am. Time Spent With Patient Time: Total time spent is greater than 50% in coordination of care (as documented) at patient's floor/unit and/or counseling patient: Time with patient: 15-24 minutes
--- NOTE | 2019-06-16 17:37 | CM.SWNOTE ---
SHIPPING SUPPORT Note: Received request for SHIPPING SUPPORT consult for 23yr old female admitted on 06-14-19 for induction of labor. Patient delivered female on 06-15-19. APGARS 06/15. Spoke with provider Tameka Carter re: social work referral. Tameka reports that patient has been doing well with all pre- care but does want SHIPPING SUPPORT to check in on this patient with mental health history. Also Tameka reports that there are family dynamics between patient and her family and FOB/Clade and his. Met with patient alone first explained SHIPPING SUPPORT role. Patient very pleasant, alert and oriented during interview. Patient reports that she lives with her Mom/Nereyda in [place]. Patient plans to return home with once stable. Patient denies any current suicidal ideation but does admit to previous thoughts. Patient currently enrolled with [employer]. Patient sees counselor Basilio on weekly basis. Patient aware of resources available to her if in MH crisis. Patient does report that FOB/Clade have been off/on romantically. Clade and his parents live in [place] and came to [place]. for of . Clade's parent's staying in [facility] and Clade staying with patient and her parents in [place]. Clade joins interview and admits that patient's parents don't really get along with him and his parents don't get along with patient. Clade reports that he will be staying in [place] for next few weeks. Then he plans to return to [place]. Patient hopes to join him in 6 or more months. They have even discussed him taking child once patient completes breast feeding. At this time they have not come to final decision. Provided both patient and FOB with resources for parenting and family planning. Patient has WIC and encouraged to also follow up with her [facility] counselor for additional resources. Patient has no concerns about returning home to her parents. No safety concerns to date from provider, or nursing staff. Anticipate home tomorrow 06-17-19. P: SHIPPING SUPPORT provided resources to both patient and FOB. Patient interviewed alone denies any SI. Patient active with [facility] [employer] and aware crisis MH options if needed. NATALY Santillan
[2019-06-16 20:21] VITALS: TEMP 36.9
[2019-06-17] MEDS: KETOROLAC 30 MG/ML VIAL IV (03:13)
[2019-06-17] MEDS: ACETAMINOPHEN 325 MG TABLET 650 MG PO (03:13)
--- NOTE | 2019-06-17 08:23 | P.DS_ITS ---
Discharge Providers Provider Date of admission: 06/14/19 18:03 Discharge Date: 06/17/19 Primary care physician: Tameka Carter CNM Consults: 06/15/19 20:57 Consult to Contact Center Rep Routine- Pending Comment: 06/15/19 20:59 Consult to [employer] Tender Routine- Completed Comment: Complex social situation w/ history of depression Discharge provider: Tameka Carter CNM Summary Time Spent with Patient Time attestation: Total time spent providing and/or coordinating discharge services: 30 minutes Objective Labs Result Diagrams: 06/15/19 06:20 Exam Vital Signs (past 8 hours): HR-67, BP-102/67, RR-15, T96.tF Temporal, SpO2-98% Narrative Exam Narrative: FF @ u-1, lochia light, no clots. Perinuem intact w/ minimal edema. Discharge Plan Discharge Plan Patient Disposition: Home Discharge comment: Supportive family Discharge Med Rec/Prescriptions Prescriptions: New buspirone 5 mg Tablet 10 mg PO BID 30 Days Qty: 60 RF: 3 acetaminophen 325 mg Tablet 650 mg PO Q6HR PRN (Reason: Pain, Mild (1-3)) 14 Days Qty: 28 RF: 0 docusate sodium 250 mg Capsule 250 mg PO DAILY 14 Days Qty: 28 RF: 0 Discontinued ursodiol 300 mg capsule 300 mg PO TID RF: 0 Follow up/Referrals: Tameka Carter CNM [Primary Care Provider] - Provider Discharge Instructions Diet: Diet as Tolerated Activity: increase slowly, as tolerated. Pelvic rest for 6 weeks. Other treatments: Follow-up with [facility] in 2 weeks and 6 week . Will repeat liver function labs at 6 weeks . Skin/Wound/Dressing Care Report to your healthcare provider any signs of infection, such as:: chills, fever and increased pain Discharge Data Primary Care Provider: Tameka Carter
[2019-06-17] MEDS: DOCUSATE 250 MG CAPSULE PO (09:48)
[2019-06-17] MEDS: BUSPIRONE 5 MG TABLET 10 MG PO (09:48)
== END 2019-06-17 11:24 | disposition home or self-care (01) | DRG 560 ==
PROVIDERS: Admitting Provider Nurse Practitioner Obstetrics & Gynecology; PCP Nurse Practitioner Obstetrics & Gynecology; Visit Provider Nurse Practitioner Obstetrics & Gynecology
DX: O26.62 Liver and biliary tract disorders in childbirth (principal); Z3A.37 37 weeks gestation of pregnancy; Z37.0 Single live birth
CPT/HCPCS: 01967; 59050; 80076; 85025; 86850; 86900; 86901; G0379; J1885; J2590; J3010

== ENCOUNTER → 2019-11-18 12:39 | Outpatient (CLI) | payer OTHER, MEDICAID, SELFPAY ==
--- NOTE | 2019-11-18 | DI.US.S_ITS ---
PROCEDURE: US PELVIC COMPLETE INDICATIONS: DUB TECHNIQUE: Real-time scanning was performed of the pelvic organs, with image documentation. Additional endovaginal scanning was necessary due to incomplete visualization of the adnexal and endometrial structures by transabdominal scanning. COMPARISON: None. FINDINGS: Transabdominal scanning: Limited scanning through the kidneys shows no hydronephrosis. No pathologic free abdominal or pelvic fluid. Endovaginal scanning: Uterus: Uterus is normal in size at 7.1 x 3.1 x 6.2 cm. The endometrium measures 4 mm in combined thickness, within normal limits. Ovaries: Right ovary measures 3.0 x 2.1 x 1.5 cm. Left ovary measures 3.0 x 1.5 x 2.1 cm. The ovaries are sonographically unremarkable. Doppler interrogation demonstrates normal waveforms in both ovaries. IMPRESSION: Unremarkable examination as detailed above. Dictated by: Félix Jovel M.D. on 11/18/2019 at 15:34 Approved by: Félix Jovel M.D. on 11/18/2019 at 15:36
== END ==
PROVIDERS: PCP Nurse Practitioner Obstetrics & Gynecology; Referring Provider Nurse Practitioner Obstetrics & Gynecology; Visit Provider Nurse Practitioner Obstetrics & Gynecology
DX: N92.1 Excessive and frequent menstruation with irregular cycle (principal); R10.2 Pelvic and perineal pain
CPT/HCPCS: 76830; 76856

== ENCOUNTER 2020-10-21 12:47 | Emergency (ER) | payer OTHER, MEDICAID, SELFPAY ==
[2020-10-21] VITALS (8 sets, daily range): BP systolic 96–124; BP diastolic 54–87; PULSE 70–97; RESP 18–22; TEMP 37.4; O2SAT 97–100
[2020-10-21 14:53] LABS: Add Manual Diff / Slide Review NO; Basophils Absolute Auto 0 /uL (0-100); Basophils Percent Auto 0.6 % (0-2); Eosinophils Absolute Auto 100 /uL (0-450); Eosinophils Percent Auto 1.6 % (2-4); Hematocrit 41.1 % (36-46); Hemoglobin 13.5 g/dL (12.0-16.0); Lymphocytes Absolute Auto 1000 /uL (1100-4500); Lymphocytes Percent Auto 15.7 % (25-40); Mean Corpuscular HGB Conc 32.9 % (30-36); Mean Corpuscular Hemoglobin 27.5 PG (26-34); Mean Corpuscular Volume 83.4 fL (80-100); Monocytes Absolute Auto 500 /uL (0-900); Monocytes Percent Auto 7.7 % (3-14); Neutrophils Absolute Auto 4600 /uL (1500-7000); Neutrophils Percent Auto 74.4 % (50-75); Platelet Count 269 X10^3/uL (150-400); Red Blood Cell Count 4.92 X10^6/uL (4.0-5.2); Red Cell Distribution Width 14.3 % (11.6-14.8); White Blood Cell Count 6.2 X10^3/uL (4.5-11.0)
[2020-10-21 14:58] LABS: INR 1.1 (0.9-1.3); Prothrombin Time 12.5 SECONDS (10.1-12.7)
[2020-10-21 15:01] LABS: PTT Partial Thromboplastin Tim 36 SECONDS (26.4-36.2)
[2020-10-21 15:03] LABS: Alanine Aminotransferase 106 IU/L (<35); Albumin 4.5 g/dL (3.5-5.0); Albumin Globulin Ratio 1.2 (1.0-2.8); Alkaline Phosphatase 130 U/L (38-126); Aspartate Aminotransferase 68 IU/L (14-36); BUN Creatinine Ratio 16.4 (6-22); Bilirubin Total 0.3 mg/dL (0.2-1.3); Blood Urea Nitrogen 10 mg/dL (7-17); Calcium 9.4 mg/dL (8.4-10.2); Carbon Dioxide 32 mmol/L (22-32); Chloride 103 mmol/L (98-107); Estimated Glomerular Filt Rate > 60.0 mL/min (>60); Globulin 3.9 g/dL (1.7-4.1); Glucose 94 mg/dL (70-100); HEMOLYSIS < 15 (0-50); Lipase 47 U/L (23-300); Potassium 4.4 mmol/L (3.4-5.1); Sodium 139 mmol/L (137-145); Total Protein 8.4 g/dL (6.3-8.2)
[2020-10-21 15:33] LABS: RBC Urine None Seen (0-5/HPF)
[2020-10-21 15:54] LABS: Amorphous Sediment Urine 1+; Bacteria Urine Few (2-10); Culture Indicated Urine Specimen Cultured; Mucus Urine 2+ (Negative); Squamous Epithelial Cell Urine 5-10 /HPF (0-5/HPF); WBC Urine 10-30/HPF (0-5/HPF)
--- NOTE | 2020-10-21 16:37 | ED.GENADULT ---
HPI - General Adult General Chief complaint: Urogenital-Female Stated complaint: vaginal tear, lots of pain Time Seen by Provider: 10/21/20 16:35 Source: patient Mode of arrival: Ambulatory History of Present Illness HPI narrative: 25-year-old woman presents with severe vulvovaginal pain, mild dysuria and pain with defecation. She had been seen at an outside ER with complaints of dysuria and diagnosed with a UTI given oral antibiotics and discharged home. Within a few hours developed a fever to 103 and was re-evaluated in the emergency department noted to be tachycardic concerns for sepsis were entertain she was treated with IV antibiotics and admitted with a presumptive diagnosis of pyelonephritis and developing sepsis. Continued to complain of vulvovaginal pain and dysuria. Urine culture ultimately did not grow out any bacteria. She was found have bacterial vaginosis and was discharged home with metronidazole that she is still taking. She returns today because her pain continues to increase she is having trouble sitting and walking. She describes no fevers recently, no chest pain, no dyspnea, no cough, no abdominal pain no pelvic pain, she does not notice a vaginal odor, she does note a slight increase in vaginal discharge as the pain is increasing. She states she has had a new sexual partner recently. Related Data Previous Rx's Medication Instructions Recorded buspirone 10 mg PO BID 30 Days #60 tab 06/17/19 oxycodone-acetaminophen 1 tab PO Q6H PRN #14 tab 10/21/20 valacyclovir 1,000 mg PO BID #20 tab 10/21/20 Allergies Allergy/AdvReac Type Severity Reaction Status Date / Time amoxicillin Allergy Mild rash Verified 06/15/19 06:32 shellfish derived Allergy Unknown Verified 06/15/19 06:32 latex AdvReac Intermediate Verified 06/15/19 06:32 Review of Systems Review of Systems Narrative: Remainder of review of systems including constitutional, ENT, cardiovascular, respiratory, GI, , musculoskeletal, skin, neurologic and psychiatric systems reviewed and are unremarkable except as noted in HPI. Patient History Medical History Anxiety and depression History of suicide attempt Liver and biliary tract disorders in , third trimester Obesity (BMI 30.0-34.9) with 34 completed weeks gestation Supervision of high risk due to social problems Supervision of with other poor reproductive or obstetric history, unspecified trimester Type O blood, Rh negative Surgical History History of appendectomy Social History marital status: unmarried,single details: FOB in [place], will be at number of children: 1 household members: family and children lives independently: Yes housing: house occupational status: employed Smoking Status: Current some day smoker substance use type: other Type(s) of exercise: walking Smoking Status: Current some day smoker Exam Narrative Exam Narrative: General: Healthy appearing, in no mild distress. Able to give a complete and coherent history. Well-nourished well-developed HEENT: Moist mucous membranes, normal sclera with reactive pupils, Neck: No JVD, supple Respiratory: Lungs are clear to auscultation, no wheezing no rales no rhonchi. Full and symmetrical air movement Cardiac: Regular rate and rhythm no murmurs no bruits Abdomen: Soft, nontender good bowel tones, no flank pain Skin: Warm and dry, no rashes Neurologic: Grossly neurologically intact with no obvious asymmetries or abnormalities Extremities: No trauma, well perfused Psych: Cooperative, appropriate insight and affect : Multiple healing vesicular lesions over the labia minora more on the right than the left there are a couple on the mucosal surface of the labia my nor eye and there is a larger healing 1 on the perineum at the 12 o'clock position of the rectum not extending into anal mucosa. She has no inguinal adenopathy. There is some mild serosanguineous discharge from the wounds that does not have significant odor to it and no significant vaginal discharge. No surrounding erythema or abscess appreciated Initial Vital Signs Initial Vital Signs: Vital Signs Temperature 99.3 F 10/21/20 13:02 Pulse Rate 97 H 10/21/20 13:02 Respiratory Rate 22 10/21/20 13:02 Blood Pressure 124/87 10/21/20 13:02 Pulse Oximetry 99 10/21/20 13:02 Course Orders Ordered: ED Orders 10/21/20 14:35 EKG-12 Lead Stat 10/21/20 14:45 Complete Blood Count AUTO DIFF Stat Comprehensive Metabolic Panel Stat Lipase Stat Partial Thromboplastin Time Stat Prothrombin Time INR Stat 10/21/20 15:10 Urine Culture Stat Urine Microscopic Stat Vital Signs Vital signs: Vital Signs - 8 hr 10/21/20 13:02 Temperature 99.3 F Pulse Rate 97 H Respiratory Rate 22 Blood Pressure 124/87 Pulse Oximetry 99 Medical Decision Making Medical Records Medical records reviewed: Yes I reviewed the patient's medical records. Lab Data Lab results reviewed: Yes I reviewed the patient's lab results. Result diagrams: 10/21/20 14:45 10/21/20 14:45 Labs: Lab Results 10/21/20 10/21/20 10/21/20 Range/Units 14:45 14:45 14:45 WBC 6.2 (4.5-11.0) X10^3/uL RBC 4.92 (4.0-5.2) X10^6/uL Hgb 13.5 (12.0-16.0) g/dL Hct 41.1 (36-46) % MCV 83.4 (80-100) fL MCH 27.5 (26-34) PG MCHC 32.9 (30-36) % RDW 14.3 (11.6-14.8) % Plt Count 269 (150-400) X10^3/uL Neut % (Auto) 74.4 (50-75) % Lymph % (Auto) 15.7 L (25-40) % [place] % (Auto) 7.7 (3-14) % Eos % (Auto) 1.6 L (2-4) % Baso % (Auto) 0.6 (0-2) % Neut # (Auto) 4600 (5651-8419) /uL Lymph # (Auto) 1000 L (1758-2447) /uL [place] # (Auto) 500 (0-900) /uL Eos # (Auto) 100 (0-450) /uL Baso # (Auto) 0 (0-100) /uL PT 12.5 (10.1-12.7) SECONDS INR 1.1 (0.9-1.3) APTT 36 (26.4-36.2) SECONDS Sodium 139 (137-145) mmol/L Potassium 4.4 (3.4-5.1) mmol/L Chloride 103 (98-107) mmol/L Carbon Dioxide 32 (22-32) mmol/L BUN 10 (7-17) mg/dL Creatinine 0.61 (0.52-1.04) mg/dL Estimated GFR > 60.0 (>60) mL/min BUN/Creatinine Ratio 16.4 (6-22) Glucose 94 (70-100) mg/dL Calcium 9.4 (8.4-10.2) mg/dL Total Bilirubin 0.3 (0.2-1.3) mg/dL AST 68 H (14-36) IU/L ALT 106 H (<35) IU/L Alkaline Phosphatase 130 H (38-126) U/L Total Protein 8.4 H (6.3-8.2) g/dL Albumin 4.5 (3.5-5.0) g/dL Globulin 3.9 (1.7-4.1) g/dL Albumin/Globulin Ratio 1.2 (1.0-2.8) Lipase 47 (23-300) U/L Urine RBC (0-5/HPF) Urine WBC (0-5/HPF) Ur Squamous Epith Cells (0-5/HPF) Amorphous Sediment Urine Bacteria (None) Urine Mucus (Negative) Ur Culture Indicated? 10/21/20 Range/Units 15:10 WBC (4.5-11.0) X10^3/uL RBC (4.0-5.2) X10^6/uL Hgb (12.0-16.0) g/dL Hct (36-46) % MCV (80-100) fL MCH (26-34) PG MCHC (30-36) % RDW (11.6-14.8) % Plt Count (150-400) X10^3/uL Neut % (Auto) (50-75) % Lymph % (Auto) (25-40) % [place] % (Auto) (3-14) % Eos % (Auto) (2-4) % Baso % (Auto) (0-2) % Neut # (Auto) (1540-4995) /uL Lymph # (Auto) (8875-3143) /uL [place] # (Auto) (0-900) /uL Eos # (Auto) (0-450) /uL Baso # (Auto) (0-100) /uL PT (10.1-12.7) SECONDS INR (0.9-1.3) APTT (26.4-36.2) SECONDS Sodium (137-145) mmol/L Potassium (3.4-5.1) mmol/L Chloride (98-107) mmol/L Carbon Dioxide (22-32) mmol/L BUN (7-17) mg/dL Creatinine (0.52-1.04) mg/dL Estimated GFR (>60) mL/min BUN/Creatinine Ratio (6-22) Glucose (70-100) mg/dL Calcium (8.4-10.2) mg/dL Total Bilirubin (0.2-1.3) mg/dL AST (14-36) IU/L ALT (<35) IU/L Alkaline Phosphatase (38-126) U/L Total Protein (6.3-8.2) g/dL Albumin (3.5-5.0) g/dL Globulin (1.7-4.1) g/dL Albumin/Globulin Ratio (1.0-2.8) Lipase (23-300) U/L Urine RBC None seen (0-5/HPF) Urine WBC 10-30/hpf H (0-5/HPF) Ur Squamous Epith Cells 5-10 /hpf H (0-5/HPF) Amorphous Sediment 1+ Urine Bacteria Few (2-10) H (None) Urine Mucus 2+ H (Negative) Ur Culture Indicated? Specimen cultured Point of Care Testing Test Results Negative Urine Dip Bedside Urine Glucose Negative Bedside Urine Bilirubin - Negative Bedside Urine Ketone +/- 5 Urine Specific [place] 1.025 Bedside Urine Occult Blood - Negative Bedside Urine pH 6.0 Bedside Urine Protein +/- 15 Bedside Urine Nitrite - Negative Bedside Urine Leukocytes + 70 Esterase Point of care testing: Point of Care Testing Test Results Negative Urine Dip Bedside Urine Glucose Negative Bedside Urine Bilirubin - Negative Bedside Urine Ketone +/- 5 Urine Specific [place] 1.025 Bedside Urine Occult Blood - Negative Bedside Urine pH 6.0 Bedside Urine Protein +/- 15 Bedside Urine Nitrite - Negative Bedside Urine Leukocytes + 70 Esterase MDM Narrative Medical decision making narrative: 25-year-old woman with increased perineal pain recent ER visits hospitalization labs urinalysis are all reviewed. On clinical exam she appears to be having an acute herpes outbreak that likely is a primary outbreak explaining the severity. She states that she has never had herpes outbreak before but again does note the recent new sexual contact. Have asked her to complete the metronidazole that she is currently on for the bacterial vaginosis and have added valacyclovir and pain medications. As her to follow-up with her primary care physician's talk about chronic therapy if needed for the HSV and recommended educating herself regarding HSV in terms of what it is, isn't, management and disclosure to future will sexual partners and protecting them from exposure. Questions were answered she seemed much better at time of discharge and is safe to go home Discharge Plan Departure Patient Disposition: Home Clinical Impression: Herpes genitalia Qualifiers: Herpes simplex infection site: vulvovaginitis Qualified Code(s): A60.04 - Herpesviral vulvovaginitis Instructions: DI for Genital Herpes Activity Restrictions/Additional Instructions: Thank you for coming in today I think that the outbreak on your genitals is herpes. Frequently the very 1st outbreak that you have can be quite painful with lots of dysuria, swelling discharge and all of the symptoms that your currently noting. You have a large sore just above your rectum to explain why having a bowel movement is also tender. There does not appear to be any secondary infection. I am going to suggest that you use Janie acyclovir a 1000 mg twice a day for 10 days to suppress the virus. Please follow-up with your primary care physician to discuss further options and whether not you would benefit from continuing on a lower dose of this for a period of time I am also going to give you a prescription for some pain medicine as the area is so tender, swollen and inflamed. Please continue the antibiotics that your given after your recent hospital stay at [facility] I wish you the best Prescriptions: New oxycodone-acetaminophen 5-325 mg tablet 1 tab PO Q6H PRN (Reason: pain) Qty: 14 RF: 0 valacyclovir 1 gram tablet 1,000 mg PO BID Qty: 20 RF: 0 No Action buspirone 5 mg Tablet 10 mg PO BID 30 Days Qty: 60 RF: 3 Referrals: Tameka Carter CNM [Primary Care Provider] -
== END 2020-10-21 18:26 | disposition home or self-care (01) ==
PROVIDERS: Emergency Provider Emergency Medicine; PCP Nurse Practitioner Obstetrics & Gynecology
DX: A60.04 Herpesviral vulvovaginitis (principal); R30.0 Dysuria; E66.9 Obesity, unspecified
CPT/HCPCS: 36415; 80053; 81003; 81015; 81025; 83690; 85025; 85610; 85730; 87086; 99281; 99283

== ENCOUNTER → 2023-04-10 14:09 | Outpatient (CLI) | payer OTHER, MEDICAID, SELFPAY ==
--- NOTE | 2023-04-10 | DI.US.S_ITS ---
PROCEDURE: US OB >= 14 WEEKS FETUS INDICATIONS: ANATOMY SCAN OUTSIDE/PRIOR DATING DATA: Last menstrual period (LMP): 11/22/2022. LMP-based estimated date of delivery (GEORGE): 08/29/2023. TECHNIQUE: Real-time scanning was performed of the fetus, with image documentation and biometric measurements. Endovaginal scanning: Not performed COMPARISON: [facility], , OB < 14 WEEKS, 02/23/2023, 8:35. FINDINGS: General: A single living intrauterine gestation is present. Presentation: Vertex. Placenta: Placental position is anterior , without previa. Amniotic fluid index: 70.8 cm, normal range is 5-24 cm. Single deepest vertical pocket is 5.3 cm. heart rate: 157 beats per minute. Maternal cervical canal: 5.4 cm long. Normal lower limit is 2.5 cm. biometrics: Biparietal diameter: 4.8 cm 20 weeks 4 days Head circumference: 17.6 cm 20 weeks 1 day Abdominal circumference: 15.2 cm 20 weeks 3 days Femur length: 3.2 cm 20 weeks 0 days estimated gestational age: 19 weeks 6 days Composite gestational age from present scan: 20 weeks 2 days Estimated weight and percentile: 341 g, 68th percentile Anatomic survey: Neuro: Ventricles are non-dilated at less than 10 mm. Cisterna magna is normal at 3-11 mm. Cerebellum is normal in size and morphology. Nuchal skin fold: Normal at less than 6 mm between 14-21 weeks gestational age. Face: Nose and lips, facial profile are normal. Spine: No evidence for spina bifida. Heart: normal ventricular outflow tracts. On four-chamber cardiac view, possible prominent insertion of pulmonary veins. Diaphragm: Diaphragm is intact. Stomach: Left-sided stomach is present. Kidneys: Right pelviectasis, renal pelvis diameter 4 mm. No left pelviectasis. Cord: 3-vessel cord has orthotopic insertion. Bladder: Normal in size. Extremities: All 4 extremities identified. IMPRESSION: 1. Single living intrauterine . 2. Estimated weight at the 68th percentile. 3. On four-chamber cardiac view, possible prominent insertion of the pulmonary veins versus artifact from off-axis imaging versus other nonspecific structural anomaly. Follow-up/further evaluation recommended, consider short interval repeat examination to assess for persistence or resolution of this finding or echocardiography. 4. Mild right pelviectasis. Follow-up 3rd trimester evaluation is recommended. 5. Other portions of the 2nd trimester anatomy survey are within normal limits. We strive to produce accurate, complete, and clear reports of imaging services. To assist us in improving patient care, this report was composed using standard report templates and voice recognition software. Therefore, it may contain abnormal punctuation, insertions and/or omissions. Occasional wrong-word or sound-alike substitutions may occur. Though we review the report and make efforts to correct it, we do recommend that the report be read carefully in proper context to recognize any text inaccuracies. Dictated by: Bernard Elias M.D. on 04/10/2023 at 16:26 Approved by: Bernard Elias M.D. on 04/10/2023 at 16:38
== END ==
PROVIDERS: Referring Provider Nurse Practitioner Obstetrics & Gynecology; Visit Provider Nurse Practitioner Obstetrics & Gynecology
DX: Z34.92 Encounter for supervision of normal pregnancy, unspecified, second trimester (principal); Z3A.20 20 weeks gestation of pregnancy
CPT/HCPCS: 76811

== ENCOUNTER 2023-06-06 18:17 | Outpatient (CLI) | payer OTHER, MEDICAID, SELFPAY ==
[2023-06-06] MEDS: LACTATED RINGERS 1,000 ML 1000 ML IV (18:36)
--- NOTE | 2023-06-06 19:50 | P.TNLD_ITS ---
Visit Information Visit Information Date of evaluation: 06/06/23 Primary OB Provider: Tameka Mills On-call OB Provider: Tameka Mills Comments/Additional reasons for admission: 27YO @ 28wks O days by 7wk US presents for evaluation of status after concern for medication reaction at home. Was receiving IV fluids at home and felt like she was having a reaction immediately after the infusion began. Shut off the infusion and called 911. Emergency services evaluated her and told her she was fine. She continues to be worried about herself and her baby, feeling physically well, just anxious. +FM. No cramping, vaginal bleeding or leaking of fluid. Vital Signs Vital Signs: BP 102/65mmHg, HR 92, T 36.6C Temporal [facility] Medical History (Updated 06/07/23 @ 05:41 by Tameka Mills CNM) Anxiety and depression History of suicide attempt Liver and biliary tract disorders in , third trimester Obesity (BMI 30.0-34.9) with 34 completed weeks gestation Supervision of high risk due to social problems Supervision of with other poor reproductive or obstetric history, unspecified trimester Type O blood, Rh negative Surgical History History of appendectomy Social History marital status: unmarried,single details: FOB in [place], will be at number of children: 1 household members: family and children lives independently: Yes housing: house occupational status: employed Smoking Status: Current some day smoker substance use type: other Type(s) of exercise: walking Review of Systems Review of Systems ROS: Yes All systems reviewed with the patient and are negative except as othe rwise documented Exam Vital Signs (past 8 hours): see above Const General: cooperative, healthy appearing and comfortable Resp Effort & Inspection: normal respiratory effort and able to speak in complete sentences Cardio Rate: regular rate Rhythm: regular rhythm Psych Appearance: grossly normal Mental Status: mental status grossly normal Speech and Movement: speech and movement normal Affect: normal affect Attitude: cooperative Evaluation Evaluation Baseline heart rate: 150 Variability: Moderate (11-25) monitor accelerations: Present Monitor Decelerations: Absent Contraction Frequency (minutes): 0 Comments: CE not indicated Diagnosis, Plan/Disposition Final Diagnosis (1) Person with feared health complaint in whom no diagnosis is made: Status: Acute Plan/Disposition Plan: 1L IVFB given as 1 liter was not given at home. Reassurance of normal status given. RTC as previously scheduled. OB Disposition: home
== END 2023-06-06 19:57 | disposition home or self-care (01) ==
LOC: OB 06-11 06:14
PROVIDERS: Referring Provider Nurse Practitioner Obstetrics & Gynecology; Visit Provider Nurse Practitioner Obstetrics & Gynecology
DX: O26.893 Other specified pregnancy related conditions, third trimester (principal); Z71.1 Person with feared health complaint in whom no diagnosis is made; Z3A.28 28 weeks gestation of pregnancy
CPT/HCPCS: 59025; G0378; G0379

== ENCOUNTER 2023-06-18 13:46 | Outpatient (CLI) | payer OTHER, MEDICAID, SELFPAY ==
[2023-06-18] MEDS: LACTATED RINGERS 1,000 ML 1000 ML IV (14:21)
--- NOTE | 2023-06-18 14:56 | P.TNLD_ITS ---
Visit Information Visit Information Date of evaluation: 06/18/23 Primary OB Provider: Tameka Mills On-call OB Provider: Tameka Mills Reason for Evaluation: Yes non-stress test and Yes other Comments/Additional reasons for admission: Selina is a 27yo female at 29.5 weeks by 7 week US. She presents reporting decreased movement and new onset itching. When she woke up this morning she didn't feel her baby move as much as normal. After calling CNM, she drank a cup of ice water and though she felt some movement in the subsequent hour, she still perceived reduced movement and was worried. She has had new, generalized itching for the last week, none on her palms or soles of feet. Also has concerns for intermittent abdominal pain that she has had for 2-3 years, moderately worsening. This morning she thought her stomach was an abnormal shape, observed it return to baseline after about 2 hours. Also requesting IV fluids, doesn't feel like she can drink anything besides milk. She has received regular care with CNIn, complicated by nausea and vomiting of , anxiety and depression, migraines and HSV. [facility] Medical History (Updated 06/07/23 @ 05:41 by Tameka Mills CNM) Anxiety and depression History of suicide attempt Liver and biliary tract disorders in , third trimester Obesity (BMI 30.0-34.9) with 34 completed weeks gestation Supervision of high risk due to social problems Supervision of with other poor reproductive or obstetric history, unspecified trimester Type O blood, Rh negative Surgical History History of appendectomy Social History marital status: unmarried,single details: FOB in [place], will be at number of children: 1 household members: family and children lives independently: Yes housing: house occupational status: employed Smoking Status: Current some day smoker substance use type: other Type(s) of exercise: walking Exam Vital Signs (past 8 hours): BP: 124/86 mmHg HR: 113 bpm T: 36.1 C Other: Normal gravid abdomen Evaluation Evaluation Baseline heart rate: 135 Variability: Moderate (11-25) monitor accelerations: Present Monitor Decelerations: Absent Contraction Frequency (minutes): 0 Category of Tracing: Reactive Comments: CE not indicated Diagnosis, Plan/Disposition Plan/Disposition Plan: A: multipara Pruritis, unspecified LFTs elevated, stable at baseline for patient Reactive NST P: LFTs and Bile acids ordered, bile acids pending 1L LR administered Discussed dietary changes to reduce constipation, including increased hydration and decreased dairy Recommend diet log to track triggers for abdominal discomfort Attend appointment tomorrow, 06/19/23 as previously scheduled OB Disposition: home
[2023-06-18 14:57] LABS: Alanine Aminotransferase 53 IU/L (<35); Albumin 3.5 g/dL (3.5-5.0); Alkaline Phosphatase 184 U/L (38-126); Aspartate Aminotransferase 32 IU/L (14-36); Bilirubin Total 0.4 mg/dL (0.2-1.3); Bilirubin Unconjugated 0.2 mg/dL (0.0-1.1); Globulin 3.5 g/dL (1.7-4.1); HEMOLYSIS < 15 (0-50)
[2023-06-20 12:48] LABS: Bile Acids 9.7 umol/L (0.0-10.0)
== END 2023-06-18 15:05 | disposition home or self-care (01) ==
LOC: LABOR 13:50 → OB 07-03 08:03
PROVIDERS: Referring Provider Nurse Practitioner Obstetrics & Gynecology; Visit Provider Nurse Practitioner Obstetrics & Gynecology
DX: O36.8130 Decreased fetal movements, third trimester, not applicable or unspecified (principal)
CPT/HCPCS: 36415; 59025; 80076; 82239; 96360; G0378; G0379

== ENCOUNTER → 2023-06-19 13:51 | Outpatient (CLI) | payer OTHER, MEDICAID, SELFPAY ==
--- NOTE | 2023-06-19 | DI.US.S_ITS ---
PROCEDURE: US OB FOLLOW UP INDICATIONS: FOLLOW UP OUTSIDE/PRIOR DATING DATA: Last menstrual period (LMP): 11/22/2022 LMP-based estimated date of delivery (GEORGE): 08/29/2023 First dating scan (date and location): 04/10/2023 Estimated date of delivery (GEORGE) from first dating scan: 08/26/2023 The calculations are made using the clinical GEORGE of 08/29/2023. TECHNIQUE: Real-time scanning was performed of the fetus, with image documentation. Endovaginal scanning: Not performed. COMPARISON: [facility], OB >= 14 WEEKS FETUS, 04/10/2023, 14:21. FINDINGS: General: A single living intrauterine gestation is present. Presentation: Vertex Placenta: Placental position is anterior, without previa. Amniotic fluid index: 21.4 cm, normal range is 5-24 cm. Single deepest vertical pocket is 6.6 cm. heart rate: 152 beats per minute. Maternal cervical canal: 3.3 cm long. Normal lower limit is 2.5 cm. Clinically estimated gestational age: 29 weeks 6 days Other: Four-chamber heart is noted and the right and left ventricular outflow tracts appear normal. IMPRESSION: 1. Single live intrauterine . 2. Normal sonographic appearance of the heart and right and left ventricular outflow tracts. We strive to produce accurate, complete, and clear reports of imaging services. To assist us in improving patient care, this report was composed using standard report templates and voice recognition software. Therefore, it may contain abnormal punctuation, insertions and/or omissions. Occasional wrong-word or sound-alike substitutions may occur. Though we review the report and make efforts to correct it, we do recommend that the report be read carefully in proper context to recognize any text inaccuracies. Approved by: Bernard Drew M.D. on 06/19/2023 at 18:30
== END ==
PROVIDERS: Referring Provider Advanced Practice Midwife; Visit Provider Advanced Practice Midwife
DX: O35.8XX0 Maternal care for other (suspected) fetal abnormality and damage, not applicable or unspecified (principal); Z3A.29 29 weeks gestation of pregnancy
CPT/HCPCS: 76816